=== PATIENT | female | born 1955 | race Caucasian/White ===

== ENCOUNTER 2017-10-25 11:23 | Observation (INO) | payer BC ==
[2017-10-25 11:46] LABS: #Lymphocytes 2.1 thou/uL (1.20-3.40); #Monocytes 0.9 thou/uL (0.11-0.59); #Neutrophils 9.2 thou/uL (1.40-6.50); %Basophils 0.2 % (0.0-1.0); %Eosinophils 0.4 % (0.0-10.0); %Lymphocytes 17.3 % (21.0-51.0); %Monocytes 7.2 % (0.0-10.0); %Neutrophils 74.9 % (42.0-75.0); Hemoglobin 15.3 g/dL (12.0-16.0); Mean Corpuscular HGB CONC 32.4 g/dL (32.0-36.0); Mean Corpuscular Hemoglobin 31.9 pg (27.0-31.0); Mean Corpuscular Volume 98.4 fl (81.0-99.0); Mean Platelet Volume 7.7 fL (7.4-10.4); Platelet Count 365 thou/uL (130-400); RBC Distribution Width 11.7 % (11.5-14.5); White Blood Cell (WBC) Count 12.2 thou/uL (4.8-10.8)
[2017-10-25 12:11] LABS: ALT (SGPT) 42 U/L (8-55); AST (SGOT) 26 U/L (5-34); Albumin 4.2 g/dL (3.4-4.8); Alkaline Phosphatase 93 U/L (40-150); Anion Gap 11 mmol/L (10-20); BUN (Urea Nitrogen) 7 mg/dL (9.8-20.1); Bilirubin, Total 0.4 mg/dL (0.2-1.2); CK (CPK) 39 U/L (29-168); Calc. Creatinine Clearance 0 mL/min (70-130); Calcium 10.1 mg/dL (7.8-10.44); Carbon Dioxide 28 mmol/L (23-31); Chloride 103 mmol/L (98-107); Estimated GFR-MDRD 78; Glucose 75 mg/dL (80-115); Potassium 3.9 mmol/L (3.5-5.1); Protein, Total 8.2 g/dL (6.0-8.3); Sodium 138 mmol/L (136-145)
--- NOTE | 2017-10-25 12:18 | RAD ---
RADIOGRAPH CHEST 1 VIEW: HISTORY: 62-year-old female with chest pain. FINDINGS: There is hyperinflation of the lungs, consistent with COPD. There is no evidence of air space density , pneumothorax, or pulmonary edema. The lateral costophrenic angles are sharp. There is no cardiomega ly or mediastinal widening. No hilar enlargement. IMPRESSION: 1. No acute pulmonary findings. 2. Emphysema. jn [] POS: [facility]
[2017-10-25 12:32] LABS: CKMB 0.5 ng/mL (0-6.6); Troponin I Less than 0.010 ng/mL (< 0.028)
[2017-10-25 14:55] LABS: Troponin I Less than 0.010 ng/mL (< 0.028)
[2017-10-25] MEDS ORDERED: Diabetic Tussin 200 MG/10 ML UDCUP PO PRN (14:58)
[2017-10-25] MEDS ORDERED: Senokot 8.6 MG TAB PO PRN (14:58)
[2017-10-25] MEDS ORDERED: Nitroglycerin 0.4 MG TAB (25 Tab Bottle) PO PRN (14:58)
[2017-10-25] MEDS ORDERED: HYDROcodone/Acetaminophen 5/325 mg Tablet PO PRN (14:58)
[2017-10-25] MEDS ORDERED: Eucerin (Mineral Oil/Petrolatum,White) 30 gm Jar TOP PRN (14:58)
[2017-10-25] MEDS ORDERED: Ondansetron ODT 4 MG TAB PO PRN (14:58)
[2017-10-25] MEDS ORDERED: Acetaminophen 325 MG TAB PO PRN (14:58)
[2017-10-25] MEDS ORDERED: Chloraseptic Spray 180 ml Bottle PO PRN (14:58)
[2017-10-25] MEDS ORDERED: Loperamide HCl 2 MG CAP PO PRN (14:58)
[2017-10-25] MEDS ORDERED: Zolpidem Tartrate 5 MG TAB PO PRN (14:58)
[2017-10-25] MEDS ORDERED: Loratadine 10 MG TAB PO PRN (14:58)
[2017-10-25] MEDS ORDERED: hydrALAZINE 20 MG/ML VIAL SLOW IVP PRN (14:58)
[2017-10-25] MEDS ORDERED: Artificial Tears 18 DROP/0.9 ML EA EYE PRN (14:58)
[2017-10-25] MEDS ORDERED: Sodium Chloride 0.65% Nasal 44 ML BOT EA NARE PRN (14:58)
[2017-10-25] MEDS ORDERED: Milk Of Magnesia 30 ML UDCUP PO PRN (14:58)
[2017-10-25] MEDS ORDERED: Lorazepam 1 MG TAB PO PRN (14:58)
[2017-10-25] MEDS ORDERED: Mag-Al 1200 mg/1200 mg/30 ML UDCUP PO PRN (14:58)
[2017-10-25] MEDS ORDERED: Ondansetron HCl/PF 4 MG/2 ML Vial IVP PRN (14:58)
[2017-10-25 15:06] VITALS: BMI 21.3
[2017-10-25] MEDS ORDERED: Lorazepam 0.5 MG TAB PO PRN (15:25)
--- NOTE | 2017-10-25 15:55 | HP ---
PRIMARY CARE PHYSICIAN: Jesus Renner M.D. CHIEF COMPLAINT: Sent by primary care physician for chest pain. HISTORY OF PRESENT ILLNESS: A 62-year-old female who has underlying history of ulcerative colitis wh o was suffering from bronchitis symptoms for last 2 weeks. Patient's symptoms started around 09/2014 . Patient has seen primary care physician and patient was given prescription for azithromycin as wel l as albuterol inhaler. With albuterol inhaler, she was feeling palpitations. Patient has finished Z-MITALI total 5 days. The patient felt reaction with that medicine in the form of nausea, vomiting and diarrhea. She was incoherent, but even after those side effects, patient completed antibiotic thera py. Patient was still having cough intermittently and shortness of breath. Patient did not have any feve r or chills. Patient was not feeling better even after completing treatment. Patient felt little bi t okay over last weekend, but the patient's symptoms started back again on Monday. Patient was feeli ng weak, cough and she was feeling chest tightness. At one point, she had radiation of chest tightne ss in the left side. Monday, patient was feeling more weak, fatigued and tired. She was also havin g chest discomfort on the left side and today she made appointment with primary care physician. The patient was no longer feeling better and that is why patient made appointment today. When patient me ntioned about chest pain and radiation to left side of arm, patient's primary care physician sent her to emergency room for evaluation. In the emergency room, patient was hemodynamically stable. Her chest x-ray showed emphysema type of changes. Patient reports that she is a smoker, but she quit smoking for about 2 weeks. She was stil l having cough productive of sputum. She was also trying Mucinex. She is allergic to most of the an tibiotic therapy. Patient denies any exertional chest pain, palpitation, shortness of breath, but she does report pleur itic component of chest discomfort with coughing and with deep breathing. She denies any lower extre mity edema or calf tenderness. She denies any hemoptysis. She denies any orthopnea, PND or leg swel ling. She denies any UTI symptoms. She denies any constipation or diarrhea at this point. REVIEW OF SYSTEMS: The following complete review of systems was negative, unless otherwise mentioned in the HPI or below: Constitutional: Weight loss or gain, ability to conduct usual activities. Skin: Rash, itching. Eyes: Double vision, pain. ENT/Mouth: Nose bleeding, neck stiffness, pain, tenderness. Cardiovascular: Palpitations, dyspnea on exertion, orthopnea. Respiratory: Shortness of breath, wheezing, cough, hemoptysis, fever or night sweats. Gastrointestinal: Poor appetite, abdominal pain, heartburn, nausea, vomiting, constipation, or diarr hea. Genitourinary: Urgency, frequency, dysuria, nocturia. Musculoskeletal: Pain, swelling. Neurologic/Psychiatric: Anxiety, depression. Allergy/Immunologic: Skin rash, bleeding tendency. Please see my HPI for pertinent positive and negative. All other review of systems reviewed and nega tive except as mentioned in the HPI. ALLERGIES: AMOXICILLIN, BUSPAR, CEFALEXIN, EFFEXOR, LEVAQUIN, LIALDA, PAMELOR, PAXIL, PROZAC, SULFA, WELLBUTRIN and ZOLOFT. CURRENT HOME MEDICATIONS: Lorazepam 0.5 mg as needed, hyoscyamine 0.125 mg p.o. daily. PAST MEDICAL HISTORY: The patient reports that she has history of inflammatory bowel disease. PAST SURGICAL HISTORY: Endometriosis surgery. PAST PSYCHIATRIC HISTORY: Anxiety and depression. SOCIAL HISTORY: The patient used to smoke half pack per day. She is not smoking for last 2 weeks. She denies any alcohol abuse. She denies any other illicit drug abuse. She is and lives at home with her . FAMILY HISTORY: No strong family history of premature coronary artery disease, stroke or cancer. EMERGENCY ROOM COURSE: Patient is given aspirin 325 mg. PHYSICAL EXAMINATION: VITAL SIGNS: On arrival, blood pressure 156/69, pulse 97, respiratory rate 20, temperature 97.8, sat uration 95% on room air and weight 63.5 kilograms. GENERAL: Patient is currently alert, awake, no obvious acute distress. HEAD: Normocephalic, atraumatic. EYES: Pupils round, reactive to light. Extraocular muscle intact. ENT: Oropharynx within normal limits. Moist mucous membranes, no oral lesion, no pharyngeal erythem a, no exudate. NECK: Supple, no JVD, no thyromegaly, no carotid bruit, no jugular venous distention. LUNGS: Clear to auscultation without any rhonchi or rales. CARDIAC: S1 and S2 appears regular. No murmur, no gallop, no rub. ABDOMEN: Soft, bowel sounds present, nontender, nondistended. No organomegaly, no mass, no suprapub ic tenderness. BACK: Examination unremarkable, no CVA tenderness. EXTREMITIES: Upper extremity passive movement of all joints are normal. Lower extremities: No arthur a. Good peripheral pulsation, no calf tenderness. SKIN: No skin rash. HEMATOLOGICAL SYSTEM: No lymphadenopathy. PSYCHIATRIC: Normal affect. IMAGING DATA AND SIGNIFICANT LABORATORY DATA: 1. EKG showing sinus tachycardia, nonspecific ST-T changes. 2. Chest x-ray based on my review, emphysematous changes. 3. CBC: WBC 12.2, hemoglobin 15.3, platelet 365. 4. BMP: Sodium 138, potassium 3.9, chloride 103, carbon dioxide 28, anion gap 11, BUN 7, creatinine 0.75, glucose 75, calcium 10.1. 5. LFT: AST 26, ALT 42, alkaline phosphatase 93, albumin 4.2, CK 39, CK-MB 0.5, troponin I less bhumika n 0.010, BNP 16.1. ASSESSMENT AND PLAN/IMPRESSION: 1. Chest pain. The patient's chest pain description is atypical, most likely related with bronchiti s. The patient is overanxious about cardiac etiology. Patient's primary care physician sent the pat ient for rule out acute coronary syndrome. Her EKG is negative. Her cardiac enzymes are negative. At this point, we will keep this patient in the hospital for observation. We will do total of 3 sets of cardiac enzymes. For benefit of doubt, we will perform exercise Cardiolite stress test tomorrow morning. We will keep her n.p.o. tomorrow morning. We will check lipid profile for risk stratificat ion. Meanwhile, we will continue with aspirin 325 mg p.o. daily and nitroglycerin on p.r.n. basis. 2. Acute bronchitis. Patient's symptoms are more consistent with acute bronchitis. At this point, we will try doxycycline 100 mg p.o. b.i.d., Solu-Medrol 40 mg IV q.6 hourly, DuoNeb q.6 hourly p.r.n. , Mucinex 600 mg twice daily and upon discharge, we will prescribe doxycycline and tapering doses of prednisone for few more days. 3. Tobacco abuse disorder. Smoking cessation counseling given. Healthy lifestyle measures discusse d with the patient. 4. Emphysema. As mentioned in problem #2, we will continue with treatment for bronchitis. The carla ent is given smoking cessation counseling. 5. Ulcerative colitis. The patient is not on any specific treatment at this point. We will continu e Levsin 0.125 mg p.o. at bedtime. 6. Anxiety and depression. We will continue lorazepam 0.5 mg p.o. daily p.r.n. 7. Deep venous thrombosis prophylaxis not needed because we are expecting discharge in 24 hours. 8. Gastrointestinal prophylaxis, Pepcid 20 mg p.o. b.i.d. 9. Code status: The patient is FULL CODE. Patient's is surrogate decision maker. Disposition plan based on clinical course. We are expecting patient's stay in hospital [address] of care discussed with the patient in detail.
[2017-10-25 18:08] LABS: Troponin I Less than 0.010 ng/mL (< 0.028)
[2017-10-25] MEDS: Famotidine 20 MG TAB PO SCH (20:13)
[2017-10-25] MEDS: Doxycycline 100 MG CAP PO SCH (20:13)
[2017-10-25] MEDS: guaiFENesin ER 600 MG TAB PO SCH (20:13)
[2017-10-26 05:02] LABS: Cardiac Risk 4.6 (Less than 4.5)
[2017-10-26 08:22] VITALS: BP 130/70; TEMP 98.4
[2017-10-26] MEDS ORDERED: Aspirin 325 MG TAB PO SCH (09:00)
[2017-10-26] MEDS: Famotidine 20 MG TAB PO SCH (09:54)
[2017-10-26] MEDS: Doxycycline 100 MG CAP PO SCH (09:54)
[2017-10-26] MEDS: guaiFENesin ER 600 MG TAB PO SCH (09:55)
--- NOTE | 2017-10-26 10:11 | PDOC.PN ---
- Subjective Encounter Start Date: 10/26/17 Encounter Start Time: 07:00 -: old records requested/rev Patient seen and examined. No new complaints. No overnight events - Objective Resuscitation Status: Resuscitation Status FULL:Full Resuscitation MAR Reviewed: Yes Vital Signs & Weight: Vital Signs (12 hours) Temp Pulse Resp BP BP Pulse Ox 10/26/17 07:45 98.4 F 74 16 10/26/17 07:27 98.4 F 74 16 130/70 95 10/26/17 04:00 80 18 136/71 96 10/25/17 23:08 98.1 F 86 16 122/71 95 Weight Weight 140 lb 2 oz I&O: 10/25/17 10/26/17 10/27/17 06:59 06:59 06:59 Intake Total 562 Balance 562 Result Diagrams: 10/25/17 11:37 10/25/17 11:37 EKG Reviewed by me: Yes (nsr) Phys Exam - Physical Examination Constitutional: NAD HEENT: PERRLA, moist MMs, sclera anicteric Neck: no nodes, no JVD, supple, full ROM Respiratory: no wheezing, no rales, no rhonchi Cardiovascular: RRR, no significant murmur, no rub Gastrointestinal: soft, non-tender, no distention, positive bowel sounds Musculoskeletal: no edema, pulses present Neurological: non-focal, normal sensation, moves all 4 limbs Lymphatic: no nodes Psychiatric: normal affect, A&O x 3 Skin: no rash, normal turgor Dx/Plan (1) Acute bronchitis Code(s): J20.9 - ACUTE BRONCHITIS, UNSPECIFIED Status: Acute Qualifiers: Bronchitis organism: unspecified organism Qualified Code(s): J20.9 - Acute bronchitis, unspecified (2) Chest pain Code(s): R07.9 - CHEST PAIN, UNSPECIFIED Status: Acute (3) Anxiety and depression Code(s): F41.9 - ANXIETY DISORDER, UNSPECIFIED; F32.9 - MAJOR DEPRESSIVE DISORDER, SINGLE EPISODE, UNSPECIFIED Status: Chronic (4) Emphysema of lung Code(s): J43.9 - EMPHYSEMA, UNSPECIFIED Status: Chronic (5) Tobacco abuse Code(s): Z72.0 - TOBACCO USE Status: Chronic - Plan cont current plan of care, plan discussed w/ family, continue antibiotics * ACS ruled out * pt does not want to go for stress test * will treat acute bronchitis * will discharge today * continue current medication as below * symptomatic treatment * discussed with . Review of Systems - Review of Systems Constitutional: negative: fever, chills, sweats, weakness, malaise, other Eyes: negative: Pain, Vision Change, Conjunctivae Inflammation, Eyelid Inflammation, Redness, Other ENT: negative: Ear Pain, Ear Discharge, Nose Pain, Nose Discharge, Nose Congestion, Mouth Pain, Mouth Swelling, Throat Pain, Throat Swelling, Other Respiratory: Cough Cardiovascular: negative: chest pain, palpitations, orthopnea, paroxysmal nocturnal dyspnea, edema, light headedness, other Gastrointestinal: negative: Nausea, Vomiting, Abdominal Pain, Diarrhea, Constipation, Melena, Hematochezia, Other Genitourinary: negative: Dysuria, Frequency, Incontinence, Hematuria, Retention , Other Musculoskeletal: negative: Neck Pain, Shoulder Pain, Arm Pain, Back Pain, Hand Pain, Leg Pain, Foot Pain, Other Skin: negative: Rash, Lesions, Salvatore, Bruising, Other - Medications/Allergies Allergies/Adverse Reactions: Allergies Allergy/AdvReac Type Severity Reaction Status Date / Time amoxicillin Allergy Verified 10/25/17 14:49 bupropion [From Wellbutrin] Allergy Verified 10/25/17 14:49 buspirone [From BuSpar] Allergy Verified 10/25/17 14:49 cephalexin Allergy Verified 10/25/17 14:49 fluoxetine [From Prozac] Allergy Verified 10/25/17 14:49 levofloxacin [From Levaquin] Allergy Verified 10/25/17 14:49 mesalamine [From Lialda] Allergy Verified 10/25/17 14:49 nortriptyline [From Pamelor] Allergy Verified 10/25/17 14:49 paroxetine [From Paxil] Allergy Verified 10/25/17 14:49 sertraline [From Zoloft] Allergy Verified 10/25/17 14:49 Sulfa (Sulfonamide Allergy Verified 10/25/17 14:49 Antibiotics) venlafaxine [From Effexor] Allergy Verified 10/25/17 14:49 Medications: Current Medications Acetaminophen (Tylenol) 650 mg PO Q4H PRN PRN Reason: Headache/Fever or Pain Hydrocodone Bitart/Acetaminophen ([place] 5/325) 1 tab PO Q4H PRN PRN Reason: Moderate Pain (4-6) Al Hydroxide/Mg Hydroxide (Maalox) 30 ml PO Q6H PRN PRN Reason: Heartburn or Indigestion Albuterol/Ipratropium (Duoneb) 3 ml NEB [id number] PRN PRN Reason: SOB &/or Wheezing Last Admin: 10/25/17 20:30 Dose: 3 ml Artificial Tears (Tears Naturale) 0 drop EA EYE PRN PRN PRN Reason: Dry Eyes Aspirin (Aspirin) 325 mg PO DAILY [facility] Last Admin: 10/26/17 09:54 Dose: Not Given Doxycycline Hyclate (Vibramycin) 100 mg PO BID [facility] Last Admin: 10/26/17 09:54 Dose: 100 mg Famotidine (Pepcid) 20 mg PO BID [facility] Last Admin: 10/26/17 09:54 Dose: 20 mg Guaifenesin (Robitussin Sf) 200 mg PO Q4H PRN PRN Reason: Cough Guaifenesin (Mucinex) 600 mg PO Q12HR [facility] Last Admin: 10/26/17 09:55 Dose: 600 mg Hydralazine HCl (Apresoline) 10 mg SLOW IVP Q4H PRN PRN Reason: Systolic BP > 180 Hyoscyamine Sulfate (Levsin) 0.125 mg PO HS [facility] Last Admin: 10/25/17 21:00 Dose: 0.125 mg Loperamide HCl (Imodium) 2 mg PO PRN PRN PRN Reason: Diarrhea/Loose Stools Loratadine (Claritin) 10 mg PO DAILYPRN PRN PRN Reason: Sinus Symptoms Lorazepam (Ativan) 1 mg PO Q4H PRN PRN Reason: Anxiety/Agitation Lorazepam (Ativan) 0.5 mg PO DAILY PRN PRN Reason: Anxiety Magnesium Hydroxide (Milk Of Magnesium) 30 ml PO DAILYPRN PRN PRN Reason: Constipation Methylprednisolone Sodium Succinate (Solu-Medrol) 40 mg IVP Q6HR [facility] Last Admin: 10/26/17 06:17 Dose: 40 mg Mineral Oil/White Petrolatum (Eucerin Cream) 0 gm TOP BIDPRN PRN PRN Reason: Dry Skin Nitroglycerin (Nitrostat) 0.4 mg PO Q5MIN PRN PRN Reason: Chest Pain Ondansetron HCl (Zofran Odt) 4 mg PO Q6H PRN PRN Reason: Nausea/Vomiting Ondansetron HCl (Zofran) 4 mg IVP Q6H PRN PRN Reason: Nausea/Vomiting Phenol (Chloraseptic [place] 180 Ml Bot) 0 ml PO PRN PRN PRN Reason: Sore Throat Senna (Senokot) 2 tab PO HSPRN PRN PRN Reason: Constipation Sodium Chloride ([place] Nasal [place] 0.65%) 0 ml EA NARE QIDPRN PRN PRN Reason: Nasal Congestion Zolpidem Tartrate (Ambien) 5 mg PO HSPRN PRN PRN Reason: Insomnia
--- NOTE | 2017-10-26 12:21 | DIS ---
DATE OF ADMISSION: 10/25/2017 DATE OF DISCHARGE: 10/26/2017 PRIMARY CARE PHYSICIAN: Henok Driscoll M.D. DISCHARGE DISPOSITION: Home. PRIMARY DISCHARGE DIAGNOSES: Chest pain, ruled out acute coronary syndrome, acute bronchitis. SECONDARY DISCHARGE DIAGNOSES: Anxiety and depression, emphysema of the lung with tobacco abuse diso rder. PRIMARY PROCEDURE/OPERATION: None. RADIOLOGICAL INVESTIGATION: Chest x-ray was normal other than emphysema of the lungs. SIGNIFICANT LABORATORY DATA: WBC 12.2, hemoglobin 15.3, platelet 365. Sodium 138, potassium 3.9, BU N 7, creatinine 0.75. LFT normal. Cardiac enzymes negative x3. BNP 16.1 and LDL 104. DISCHARGE MEDICATIONS: Doxycycline 100 mg p.o. b.i.d. for 7 days, Pepcid 20 mg p.o. b.i.d. for 7 day s, Mucinex 600 mg p.o. b.i.d. for 7 days, prednisone 20 mg p.o. b.i.d. for 7 days. Patient will cont inue Levsin 0.125 mg p.o. at bedtime and lorazepam 0.5 mg p.o. daily p.r.n. CONTRAINDICATIONS: None. CODE STATUS: FULL CODE. INPATIENT CONSULTANTS: None. ALLERGIES: AMOXICILLIN, BUPROPION, BUSPIRONE, CEPHALEXIN, FLUOXETINE. Patient does have multiple dr ug allergies including SULFA and LEVAQUIN as well. CONTRAINDICATION: None. CODE STATUS: FULL CODE. INPATIENT FEED HOUSE SUPERVISOR: None. DISCHARGE PLAN: Post hospital, patient will follow up with primary care physician in 1 week. HOSPITAL COURSE: A 62-year-old female who was suffering from bronchitis symptoms for about 2 weeks. The patient was not feeling better and she was experiencing chest pain with coughing and deep breath ing. She went to see primary care physician. She was on room air, saturating normal. When she expr essed to her complaint about chest tightness and radiation of chest tightness to left upper extremity and that is why primary care physician sent her to emergency room and she was admitted to telemetry floor for observation. Please see my HPI for further detail. We did serial cardiac enzyme and ruled out acute coronary syndrome. Her EKG was normal. Her lipid p rofile is at target. The patient was planned for doing stress test next day, but patient refused to go for stress test. She does not want to go for stress test as she does not feel that her pain is re lated with cardiac etiology, which I agree at this point. Currently, patient's symptoms is consisten t with acute bronchitis and that is why above-mentioned medication was given. While in hospital, I t reated her with Solu-Medrol as well. The patient doing very well. Patient will follow up with [facility] physician and if she needs a stress test that can be done on an outpatient basis. The patient is seen and examined at bedside today. Plan of care discussed with the patient and famil y member at bedside.
== END 2017-10-26 11:32 | disposition home or self-care (01) ==
LOC: ERS 11:23 → 2SW 13:45
PROVIDERS: ADMIT Internal Medicine; ATTEND Internal Medicine
DX: R07.89 Other chest pain (principal); K51.90 Ulcerative colitis, unspecified, without complications; F41.9 Anxiety disorder, unspecified; F32.9 Major depressive disorder, single episode, unspecified; J20.9 Acute bronchitis, unspecified; F17.210 Nicotine dependence, cigarettes, uncomplicated; J43.9 Emphysema, unspecified; Z88.0 Allergy status to penicillin; Z88.1 Allergy status to other antibiotic agents; Z88.2 Allergy status to sulfonamides; Z88.8 Allergy status to other drugs, medicaments and biological substances; Z79.899 Other long term (current) drug therapy
CPT/HCPCS: 36415; 71045; 80053; 80061; 82553; 83880; 84484; 85025; 93005; 94640; 96374; 96376; G0378; J2920; J7620

== ENCOUNTER 2020-05-01 12:11 | Outpatient (CLI) | payer MEDICARE, BC ==
--- NOTE | 2020-05-01 13:35 | RAD ---
2 VIEWS CHEST: Date: 05/01/2020 COMPARISON: 10/25/2017. HISTORY: Dyspnea. FINDINGS: Two views of the chest show normal sized cardiomediastinal silhouette. Increased interstitial lung ma rkings are present. There is a questionable superimposed air space opacity in the right mid lung. No pleural effusion is seen. Biapical pleural thickening is seen. The bones are unremarkable. IMPRESSION: Possible subtle right-sided pulmonary infiltrate. POS: [facility]
== END 2020-05-01 12:12 | disposition home or self-care (01) ==
LOC: BICRAD 12:11
PROVIDERS: ATTEND Internal Medicine Critical Care Medicine
DX: R06.00 Dyspnea, unspecified (principal)
CPT/HCPCS: 71046

== ENCOUNTER 2020-10-15 07:53 | Outpatient (CLI) | payer MEDICARE, BC | END 2020-10-15 07:54 | disposition home or self-care (01) | LOC: BICCT 07:53 | PROVIDERS: ATTEND Urology | DX: N28.9 Disorder of kidney and ureter, unspecified (principal); N28.1 Cyst of kidney, acquired | CPT/HCPCS: 74170; 82565 ==

== ENCOUNTER 2020-11-17 01:28 | Observation (INO) | payer MEDICARE, BC ==
[2020-11-17 02:29] LABS: #Basophils 0.1 thou/uL (0.0-0.2); #Eosinphils 0.2 thou/uL (0.0-0.7); #Lymphocytes 2.6 thou/uL (1.20-3.40); #Monocytes 0.6 thou/uL (0.11-0.59); #Neutrophils 4.3 thou/uL (1.40-6.50); %Basophils 0.7 % (0.0-1.0); %Eosinophils 2.3 % (0.0-10.0); %Lymphocytes 33.3 % (21.0-51.0); %Monocytes 7.2 % (0.0-10.0); %Neutrophils 56.5 % (42.0-75.0); Hemoglobin 14.3 g/dL (12.0-16.0); Mean Corpuscular HGB CONC 34.8 g/dL (32.0-36.0); Mean Corpuscular Hemoglobin 34.8 pg (27.0-31.0); Mean Corpuscular Volume 99.8 fL (78.0-98.0); Mean Platelet Volume 8.6 fL (7.4-10.4); Platelet Count 181 thou/uL (130-400); RBC Distribution Width 11.9 % (11.5-14.5); White Blood Cell (WBC) Count 7.7 thou/uL (4.8-10.8)
[2020-11-17 02:50] LABS: ALT (SGPT) 16 U/L (8-55); AST (SGOT) 14 U/L (5-34); Albumin 3.6 g/dL (3.4-4.8); Alkaline Phosphatase 76 U/L (40-110); Anion Gap 11 mmol/L (10-20); BUN (Urea Nitrogen) 10 mg/dL (9.8-20.1); Bilirubin, Total 0.3 mg/dL (0.2-1.2); CK (CPK) 39 U/L (29-168); Calc. Creatinine Clearance 0 mL/min (70-130); Calcium 8.9 mg/dL (7.8-10.44); Carbon Dioxide 25 mmol/L (23-31); Chloride 106 mmol/L (98-107); Globulin 2.9 g/dL (2.4-3.5); Glucose 100 mg/dL (80-115); Lipase 81 U/L (8-78); Potassium 3.8 mmol/L (3.5-5.1); Protein, Total 6.5 g/dL (5.8-8.1); Sodium 138 mmol/L (136-145)
[2020-11-17] MEDS ORDERED: Lorazepam 1 MG TAB ONE (03:51)
[2020-11-17 06:34] LABS: Troponin I Less than 0.010 ng/mL (< 0.028)
[2020-11-17 08:07] VITALS: TEMP 98.5
[2020-11-17] MEDS ORDERED: Regadenoson 0.4 MG/5 ML SYRINGE ONE (09:08)
[2020-11-17 09:52] LABS: Troponin I Less than 0.010 ng/mL (< 0.028)
[2020-11-17 10:09] LABS: Bilirubin Negative (Negative); Blood, Urine 1+ (Negative); Clarity Clear (Clear); Glucose, Urine (Dipstick) Normal (Negative); Ketone, Urine Negative (Negative); Leukocyte 250 Leu/uL (Negative); Nitrite Negative (Negative); Protein, Urine (Dipstick) Negative (Neg-Trace); RBC/HPF 0-3 HPF (0-3); Specific Gravity, Urine 1.009 (1.002-1.036); Squamous Epithelial 0-3 HPF (0-3); Urobilinogen Normal mg/dL (Less than 2); WBC/HPF 0-3 HPF (0-3); pH, Urine 7.5 (5.0-9.0)
[2020-11-17 10:14] LABS: Bacteria/HPF 1+ HPF (None Seen)
[2020-11-17] MEDS ORDERED: Nitroglycerin 0.4 MG TAB (25 Tab Bottle) SL PRN (10:27)
[2020-11-17] MEDS ORDERED: Lorazepam 0.5 MG TAB PO PRN (10:29)
[2020-11-17] MEDS ORDERED: ALPRAZolam 0.25 MG TAB PO PRN (10:30)
[2020-11-17 11:06] LABS: Cardiac Risk 5.2 (Less than 4.5)
[2020-11-18] MEDS ORDERED: Aspirin Chewable 81 MG TAB PO SCH (09:00)
== END 2020-11-17 18:08 | disposition home or self-care (01) ==
LOC: ERS 01:28 → ERHOLD 04:30
PROVIDERS: ADMIT Student in an Organized Health Care Education/Training Program; ATTEND Internal Medicine
DX: R07.9 Chest pain, unspecified (principal); J44.9 Chronic obstructive pulmonary disease, unspecified; F17.210 Nicotine dependence, cigarettes, uncomplicated; F41.9 Anxiety disorder, unspecified; F32.9 Major depressive disorder, single episode, unspecified; K51.90 Ulcerative colitis, unspecified, without complications; Z88.0 Allergy status to penicillin; Z88.1 Allergy status to other antibiotic agents; Z88.2 Allergy status to sulfonamides; Z88.8 Allergy status to other drugs, medicaments and biological substances; Z79.899 Other long term (current) drug therapy
CPT/HCPCS: 71045; 78452; 80053; 80061; 82550; 83690; 84484 ×2; 85025; 93005; 93017; 99285; A9500; G0378; 36415; 81003; 81015; J2785

== ENCOUNTER 2022-08-23 13:09 | Outpatient (CLI) | payer MEDICARE, BC | END 2022-08-23 13:10 | disposition home or self-care (01) | LOC: RAD 13:09 | PROVIDERS: ATTEND Internal Medicine Critical Care Medicine | DX: R06.00 Dyspnea, unspecified (principal) | CPT/HCPCS: 71046 ==

== ENCOUNTER 2023-08-24 13:05 | Outpatient (CLI) | payer MEDICARE | END 2023-08-24 13:06 | disposition home or self-care (01) | LOC: RAD 13:05 | PROVIDERS: ATTEND Internal Medicine Critical Care Medicine | DX: R06.00 Dyspnea, unspecified (principal) | CPT/HCPCS: 71046 ==